=== PATIENT | male | born 1985 | race Caucasian/White ===

== ENCOUNTER 2020-03-18 14:00 | Emergency (ER) | payer MEDICAID ==
[~2020-03-18] VITALS: Ht 175.3 cm; Wt 70.0 kg
[2020-03-18] MEDS ORDERED: ONDANSETRON HCL 4MG/2ML INJ IM ONE (15:00)
[2020-03-18] MEDS ORDERED: NALOXONE HCL 1 MG/ML 2ML VIAL IM ONE (15:00)
[2020-03-18 16:21] LABS: BASOPHILS % 2.7 % (0.0-2.0); EOSINOPHILS % 0.9 % (0.0-5.0); HEMATOCRIT. 38.7 % (42.0-52.0); HEMOGLOBIN. 13.1 g/dL (14.0-18.0); MEAN CORPUSCULAR HEMOGLOBIN 31.4 pg (28.0-32.0); MEAN CORPUSCULAR VOLUME 92.6 fL (80.0-94.0); MEAN PLATELET VOLUME 6.6 fl (7.4-10.4); MONOCYTES % 4.5 % (2.0-8.0); NEUTROPHILS % 57.9 % (40.0-76.0); PLATELET 221 x1000/uL (130-400); RED BLOOD CELL COUNT 4.18 mill/uL (4.7-6.1); RED CELL DISTRIBUTION WIDTH 14.3 % (11.6-14.6)
[2020-03-18 16:29] LABS: CHLORIDE 105 mEq/L (98-107)
[2020-03-18 16:42] LABS: ETHANOL BLOOD 457 mg/dL
[2020-03-18 17:24] LABS: *AMPHETAMINES SCREEN URINE NEGATIVE (NEGATIVE); *BARBITURATES SCREEN URINE NEGATIVE (NEGATIVE)
[2020-03-18 17:25] LABS: *BENZODIAZEPINES SCREEN URINE NEGATIVE (NEGATIVE); *COCAINE SCREEN URINE NEGATIVE (NEGATIVE); CANNABINOID URINE SCREEN NEGATIVE (NEGATIVE); METHADONE URINE SCREEN NEGATIVE (NEGATIVE); OPIATES URINE SCREEN NEGATIVE (NEGATIVE); PHENCYCLIDINE URINE SCREEN NEGATIVE (NEGATIVE)
[2020-03-19 05:22] VITALS: BP 125/88
== END 2020-03-19 08:24 | disposition home or self-care (01) ==
LOC: EDBD 14:07 → ER 14:07
DX: F10.129 Alcohol abuse with intoxication, unspecified (principal); F11.20 Opioid dependence, uncomplicated
CPT/HCPCS: 36415; 80053; 80305; 80320; 84484; 85025; 93005; 96372; 99285; J2310; J2405; G0480